=== PATIENT | male | born 1960 | race Caucasian/White ===

== ENCOUNTER 2019-11-09 10:31 | Emergency (ER) | payer BC ==
[~2019-11-09] VITALS: Ht 193 cm; Wt 124.7 kg
[~2019-11-09 10:31] MED LIST: ALPR.5 PO; Cipro500 MG PO; Flagyl500 MG PO; HYDR1TAB94; NAPR220; OXYACE5T PO; OXYC5 PO; Percocet 5-3251 EACH PO; Roxicodone5 MG PO
[2019-11-09] MEDS ORDERED: Roxicodone5 MG PO ×2 (14:28→15:53)
[2019-11-09] MEDS ORDERED: KEFLEX500 MG PO ×2 (14:28→15:53)
== END 2019-11-09 16:06 | disposition home or self-care (01) ==
LOC: ER 10:31
DX: S62.522B Displaced fracture of distal phalanx of left thumb, initial encounter for open fracture (principal); M25.571 Pain in right ankle and joints of right foot; Z88.5 Allergy status to narcotic agent; W31.2XXA Contact with powered woodworking and forming machines, initial encounter; Y93.89 Activity, other specified
CPT/HCPCS: 73130; 73630

== ENCOUNTER 2020-07-21 09:03 | Emergency (ER) | payer BC ==
[~2020-07-21] VITALS: Ht 193 cm; Wt 113.4 kg
[~2020-07-21 09:03] MED LIST changes: +KEFLEX500 MG PO
[2020-07-21 10:28] LABS: BASOPHILS ABSOLUTE AUTO 0.02 K/mm3 (0.00-0.23); BASOPHILS PERCENT AUTO 0 % (0-2); EOSINOPHILS PERCENT AUTO 0 % (0-6); Hematocrit 45.4 % (37.0-53.0); Hemoglobin 15.9 g/dL (13.5-17.5); IMMATURE GRAN ABSOLUTE AUTO 0.03 K/mm3 (0.00-0.10); IMMATURE GRAN PERCENT AUTO 1 % (0-1); LYMPHOCYTES PERCENT AUTO 10 % (21-46); MONOCYTES ABSOLUTE AUTO 0.46 K/mm3 (0.16-1.47); MONOCYTES PERCENT AUTO 9 % (4-13); Mean Corpuscular HGB 30.8 pg (26.0-34.0); Mean Corpuscular Volume 88 fL (80-100); Mean Platelet Volume 11.3 fL (9.1-12.4); NEUTROPHILS ABSOLUTE AUTO 3.98 K/mm3 (1.96-9.15); NEUTROPHILS PERCENT AUTO 80 % (41-73); Platelet Count 113 K/mm3 (150-400); RDW Coefficient Variation 12.4 % (11.7-14.2); RDW Standard Deviation 40.7 fL (35.1-46.3); Red Blood Cell Count 5.16 M/mm3 (4.30-5.90); White Blood Cell Count 4.99 K/mm3 (4.00-11.30)
[2020-07-21 10:43] LABS: Alanine Aminotransfer (ALT/SGP 26 U/L (12-78); Albumin, Blood 3.5 g/dL (3.4-5.0); Albumin/Globulin Ratio 0.7 (0.8-1.8); Alk Phos 66 U/L (50-136); Anion Gap 6 mmol/L (6-16); Aspartate Aminotrans (AST/SGOT 41 U/L (12-37); Bilirubin, Total 0.8 mg/dL (0.1-1.0); Blood Urea Nitrogen 15 mg/dL (8-24); Bun/Creatinine Ratio 18.5 (12.0-20.0); CO2, Blood 25 mmol/L (21-32); Calcium, Blood 8.8 mg/dL (8.5-10.1); Chloride, Blood 101 mmol/L (98-108); Creatinine, Blood 0.81 mg/dL (0.60-1.20); Globulin, Blood 4.7 g/dL (2.2-4.0); Glomerular Filtration Rate >60 (60-); Glucose, Blood 95 mg/dL (70-99); Potassium, Blood 4.8 mmol/L (3.5-5.5); Sodium, Blood 132 mmol/L (136-145); Total Protein, Blood 8.2 g/dL (6.4-8.2)
[2020-07-21] MEDS ORDERED: DECADRON4 M1 PO (11:48)
== END 2020-07-21 13:08 | disposition home or self-care (01) ==
LOC: ER 09:03
PROVIDERS: Emergency Medicine
DX: U07.1 COVID-19 (principal); J12.82 Pneumonia due to coronavirus disease 2019; R09.02 Hypoxemia; Z88.5 Allergy status to narcotic agent; Z88.6 Allergy status to analgesic agent
CPT/HCPCS: 36415; 71045; 80053; 84145; 84484; 85025; 93005; 93010; 99284-25; A9270; J7120

== ENCOUNTER 2021-07-18 10:13 | Emergency (ER) | payer BC ==
[~2021-07-18] VITALS: Ht 193 cm; Wt 136.1 kg
[~2021-07-18 10:13] MED LIST changes: +DECADRON4 M1 PO
[2021-07-18] MEDS ORDERED: Diclofenac Pota50 MG PO (11:16)
[2021-07-18] MEDS ORDERED: DECARA1250 MC1 PO (11:16)
[2021-07-18] MEDS ORDERED: TELMISARTAN20 MG PO (11:16)
[2021-07-18] MEDS ORDERED: HYDROCHLOROTH12.5 MG PO (11:17)
[2021-07-18 11:51] LABS: Source, Urine Clean Catch
[2021-07-18 11:57] LABS: Appearance, Urine Clear (Clear); Bilirubin, Urine Neg (Neg); Blood, Urine Neg (Neg); Color, Urine Yellow (P-Yellow); Glucose Qualitative, Urine Neg (Neg); Ketones, Urine Neg (Neg); Leukocyte Esterase, Urine Neg (Neg); Nitrite, Urine Neg (Neg); Protein, Urine Neg (Neg); Urobilinogen, Urine NORM (Normal)
[2021-07-18] MEDS ORDERED: CYCL10 PO (13:01)
== END 2021-07-18 13:17 | disposition home or self-care (01) ==
LOC: ER 10:13
PROVIDERS: Student in an Organized Health Care Education/Training Program
DX: S39.012A Strain of muscle, fascia and tendon of lower back, initial encounter (principal); S29.012A Strain of muscle and tendon of back wall of thorax, initial encounter; X50.0XXA Overexertion from strenuous movement or load, initial encounter; I10 Essential (primary) hypertension; Z79.899 Other long term (current) drug therapy; Z88.5 Allergy status to narcotic agent; Z88.6 Allergy status to analgesic agent
CPT/HCPCS: 72080; 73522; 81003; A9270; J1885